=== PATIENT | female | born 2000 | race Caucasian/White ===

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

== ENCOUNTER 2022-01-27 10:58 | Emergency (ER) | payer BC ==
[~2022-01-27 10:58] MED LIST changes: +BUTALB-ACETAMI1 EAC1 PO; +DECADRON4 MG PO
[2022-01-27 12:19] LABS: HEMOGLOBIN 12.7 gm/dl (12.3-15.3); RED BLOOD COUNT 4.07 M/UL (4.00-5.10)
[2022-01-27 12:41] LABS: BUN/CREATININE RATIO 19 (0-10)
[2022-01-27] MEDS ORDERED: IBUPROFEN600 MG PO (17:22)
[2022-01-27] MEDS ORDERED: ZOFRAN ODT 4 MG4 MG SL (17:23)
[2022-01-27] MEDS ORDERED: TAMIFLU 75 MG C75 MG PO (17:23)
== END 2022-01-27 17:30 | disposition home or self-care (01) ==
LOC: ER1 10:58
PROVIDERS: Physician Assistant
DX: J10.1 Influenza due to other identified influenza virus with other respiratory manifestations (principal); R10.30 Lower abdominal pain, unspecified; Z20.822 Contact with and (suspected) exposure to COVID-19
CPT/HCPCS: 0240U; 80053; 81001; 83605; 83690; 84703; 85025; 85652; 86140; 87040; 96374; 96375; 99284; J0780; J1885; J2270; Q9967

== ENCOUNTER → 2022-06-27 | Outpatient (CLI) | payer BC ==
[~2022-06-27] MED LIST changes: +TAMIFLU 75 MG C75 MG PO; +ZOFRAN ODT 4 MG4 MG SL
== END ==
LOC: EMI 12:55
DX: S06.0X9A Concussion with loss of consciousness of unspecified duration, initial encounter (principal)
CPT/HCPCS: 70551